=== PATIENT | female | born 1980 | race Caucasian/White ===

== ENCOUNTER 2016-12-11 18:46 | Emergency (ER) | payer MEDICAID ==
[~2016-12-11] VITALS: Ht 261.6 cm; Wt 146.8 kg
[2016-12-11 18:50] VITALS: Ht 261.6 cm; Wt 146.8 kg
--- OUTSIDE RECORDS SUMMARY | 2016-12-11 18:51 | XMS REPORT | Referral Summary ---
Author Author [facility] Organization [facility] Address Unknown Phone Unavailable Care Team Providers Care Customer Solutions Supervisor Name Role Phone Annita - [facility] Primary Care Physician Unavailable Encounter [facility] [id number] Date(s): 04/01/15 - 04/01/15 [facility] [address] [place] [address] Final: HEADACHE Discharge Disposition: Without Being Seen Attending Physician: Rishi Davila MD Admitting Physician: Rishi Davila MD Vital Signs Most recent to 1 oldest [Reference Range]: Temperature Oral 36.9 degC [35.8-37.3 degC] (04/01/15 1:20 AM) Peripheral Pulse 90 bpm Rate [60-100 bpm] (04/01/15 1:20 AM) Respiratory Rate 20 br/min [14-20 br/min] (04/01/15 1:20 AM) Blood Pressure 113/90 mmHg [90-140/60-90 mmHg] (04/01/15 1:20 AM) SpO2 97 % (04/01/15 1:20 AM) Problem List Condition Effective Dates Status Health Status Informant ADHD(Confirmed) Active patient Asthma(Confirmed) Active patient Bipolar(Confirmed) Active patient Borderline Active patient personality disorder(Confirmed) Vaginal Active matt(Confirmed) Chronic Active patient depression(Confirmed ) Neuropathy, Active peripheral(Confirmed ) GERD(Confirmed) Active patient Intermittent Active patient explosive disorder(Confirmed) Lymphedema of lower Active extremity(Confirmed) Morbid Active obesity(Confirmed) OCD(Confirmed) Active patient Tobacco Active abuse(Confirmed) Allergies, Adverse Reactions, Alerts Substance Reaction Severity Status Phenergan1 Medium Active 1gets muscle spasm and cold Medications ibuprofen 800 mg oral tablet 800 mg 1 tabs, Oral, TID, as needed for pain, # 30 tabs, 0 Refill(s) Start Date: 12/9/15 Status: Ordered Zoloft 50 mg oral tablet 50 mg 1 tabs, Oral, Daily, 0 Refill(s) Start Date: 02/23/15 Status: Ordered Results No data available for this section Immunizations Vaccine Date Refusal Reason tetanus-diphth toxoids (Td) adult/adol 08/23/03 Procedures Procedure Date Related Diagnosis Body Site Cholecystectomy Laparoscopic1 06/25/15 Eye operation2 Fallopian tube excision3 Ovary operation4 1auto-populated from documented surgical case 2"lazy" eye correction bilat eyes 3Left 4" control devise removed from right ovary" and cyst removal Social History Social History Type Response Smoking Status Current every day smoker; Type: Cigarettes; Number of years: 24; Total pack years: 360; Started at age: 9 Assessment and Plan No data available for this section
--- OUTSIDE RECORDS SUMMARY | 2016-12-11 18:51 | XMS REPORT | Referral Summary ---
Author Author [facility] Organization [facility] Address Unknown Phone Unavailable Care Team Providers Care Doctor Of Nursing Practice Name Role Phone [facility] Unavailable Encounter [facility] [id number] Date(s): 04/04/15 - 04/04/15 [facility] [address] [place] [address] Discharge Diagnosis: Vomiting in adult Discharge Diagnosis: Abdominal pain Final: ABDOMINAL PAIN, OTHER SPECIFIED SITE; MULTIPLE SITES Final: VOMITING ALONE Discharge Disposition: 01-Home or Self Care Attending Physician: Louie York MD Admitting Physician: Louie York MD Vital Signs Most recent to 1 oldest [Reference Range]: Temperature Oral 36.5 degC [35.8-37.3 degC] (04/04/15 2:42 PM) Peripheral Pulse 95 bpm Rate [60-100 bpm] (04/04/15 6:24 PM) Respiratory Rate 16 br/min [14-20 br/min] (04/04/15 6:24 PM) Blood Pressure 129/86 mmHg [90-140/60-90 mmHg] (04/04/15 6:24 PM) SpO2 97 % (04/04/15 6:24 PM) Problem List Condition Effective Dates Status Health [...] Active 1gets muscle spasm and cold Medications Bactrim DS 800 mg-160 mg oral tablet 1 tabs, Oral, BID, X 7 days, # 14 tabs, 0 Refill(s) Start Date: 10/12/15 Stop Date: 10/19/15 Status: Ordered Fleet Enema 7 g-19 g rectal enema 1 Each, Rectal, Once, as needed for constipation, # 133 mL, 0 Refill(s) Start Date: 10/12/15 Status: Ordered GoLYTELY oral powder for reconstitution 240 mL, Oral, q10min, # 1 Each, 0 Refill(s) Start Date: 10/12/15 Status: Ordered ibuprofen 800 mg oral tablet 800 mg 1 tabs, Oral, TID, as needed for pain, # 30 tabs, 0 Refill(s) Start Date: 09/05/15 Status: Ordered Zoloft 50 mg oral tablet 50 mg 1 tabs, Oral, Daily, 0 Refill(s) Start Date: 02/23/15 Status: Ordered Results Hematology Most recent to 1 oldest [Reference Range]: WBC [4.8-10.8 10.6 10*3/uL 10*3/uL] (04/04/15 4:43 PM) RBC [4.00-5.20 4.73 10*6/uL 10*6/uL] (04/04/15 4:43 PM) Hgb [12.0-16.0 13.0 gm/dL gm/dL] (04/04/15 4:43 PM) Hct [37.0-47.0 %] 39.8 % (04/04/15 4:43 PM) MCV [82.0-99.0 fL] 84.1 fL (04/04/15 4:43 PM) MCH [27.0-32.0 pg] 27.5 pg (04/04/15 4:43 PM) MCHC [32.0-36.0 32.7 gm/dL gm/dL] (04/04/15 4:43 PM) RDW [11.5-14.5 %] 15.2 % *HI* (04/04/15 4:43 PM) Platelet [150-400 315 10*3/uL 10*3/uL] (04/04/15 4:43 PM) MPV [9.4-12.4 fL] 10.8 fL (04/04/15 4:43 PM) Immature 0.2 % Granulocytes (04/04/15 4:43 PM) [0.0-1.0 %] Neutrophils [51-75 74 % %] (04/04/15 4:43 PM) Lymphocytes [20-46 19 % %] *LOW* (04/04/15 4:43 PM) Monocytes [4-11 %] 5 % (04/04/15 4:43 PM) Eosinophils [0-4 %] 2 % (04/04/15 4:43 PM) Basophils [0-2 %] 0 % (04/04/15 4:43 PM) Neutro Absolute 7.82 10*3 [1.90-7.00 10*3] *HI* (04/04/15 4:43 PM) Lymph Absolute 2.01 10*3 [0.80-3.30 10*3] (04/04/15 4:43 PM) [place] Absolute 0.49 10*3 [0.30-1.00 10*3] (04/04/15 4:43 PM) Eos Absolute 0.21 10*3 [0.00-0.50 10*3] (04/04/15 4:43 PM) Baso Absolute 0.02 10*3 [0.00-0.20 10*3] (04/04/15 4:43 PM) Nucleated RBC 0.0 /100 WBC Automated [0 /100 (04/04/15 4:43 PM) WBC] Chemistry Most recent to 1 oldest [Reference Range]: Sodium Lvl [136-144 137 mEq/L mEq/L] (04/04/15 4:43 PM) Potassium Lvl 4.2 mEq/L [3.6-5.1 mEq/L] (04/04/15 4:43 PM) Chloride [99-109 105 mEq/L mEq/L] (04/04/15 4:43 PM) CO2 [22-32 mEq/L] 26 mEq/L (04/04/15 4:43 PM) AGAP [3-20] 6 (04/04/15 4:43 PM) BUN [4-20 mg/dL] 9 mg/dL (04/04/15 4:43 PM) Glucose Lvl [70-100 105 mg/dL mg/dL] *HI* (04/04/15 4:43 PM) Creatinine Lvl 1.15 mg/dL [0.44-1.03 mg/dL] *HI* (04/04/15 4:43 PM) eGFR [>60] 54 1 *ABN* (04/04/15 4:43 PM) Calcium Lvl 9.0 mg/dL [8.6-10.0 mg/dL] (04/04/15 4:43 PM) Albumin Lvl [3.5-4.8 3.3 gm/dL gm/dL] *LOW* (04/04/15 4:43 PM) Total Protein 6.8 gm/dL [6.1-7.9 gm/dL] (04/04/15 4:43 PM) Globulin [1.9-4.3 3.5 gm/dL gm/dL] (04/04/15 4:43 PM) ALT [14-54 U/L] 19 U/L (04/04/15 4:43 PM) AST [15-41 U/L] 19 U/L (04/04/15 4:43 PM) Alk Phos [26-104 74 U/L U/L] (04/04/15 4:43 PM) Bili Total [0.2-1.2 0.5 mg/dL 2 mg/dL] (04/04/15 4:43 PM) Lipase Lvl [8-48 25 U/L U/L] (04/04/15 4:43 PM) 1Result Comment: Multiply eGFR results by 1.21 for race. 2Result Comment: Naproxen, specifically the metabolite O-desmethylnaproxen, may cause spurious elevation in Total Bilirubin levels. Urinalysis Most recent to 1 oldest [Reference Range]: UA Color Dk Yellow (04/04/15 4:44 PM) UA Appear Clear (04/04/15 4:44 PM) UA pH [5.0-8.0] 6.5 (04/04/15 4:44 PM) UA Leuk Est Negative [Negative] (04/04/15 4:44 PM) UA Nitrite Negative [Negative] (04/04/15 4:44 PM) UA Protein Negative [Negative] (04/04/15 4:44 PM) UA Glucose Negative [Negative] (04/04/15 4:44 PM) UA Ketones Negative [Negative] (04/04/15 4:44 PM) UA Urobilinogen 4.0 mg/dL [<1.0 mg/dL] *ABN* (04/04/15 4:44 PM) UA Bili [Negative] Negative (04/04/15 4:44 PM) UA Blood [Negative] Negative (04/04/15 4:44 PM) UA Spec Grav 1.018 [1.003-1.030] (04/04/15 4:44 PM) Type Clean Catch (04/04/15 4:44 PM) Immunizations Vaccine Date Refusal Reason tetanus-diphth toxoids [...]
--- OUTSIDE RECORDS SUMMARY | 2016-12-11 18:52 | XMS REPORT | Referral Summary ---
Author Author [facility] Organization [facility] Address Unknown Phone Unavailable Care Team Providers Care Fur Plucker Name Role Phone [facility] Unavailable Encounter [facility] [id number] Date(s): 03/10/15 - 03/10/15 [facility] [address] [place] [address] Discharge Diagnosis: Left ankle sprain Final: UNSPECIFIED SITE OF ANKLE SPRAIN Final: TOBACCO USE DISORDER Final: Overexertion from sudden strenuous movement Discharge Disposition: 01-Home or Self Care Attending Physician: Gilberto Xiong MD Admitting Physician: Gilberto Xiong MD Vital Signs Most recent to 1 oldest [Reference Range]: Temperature Oral 36.7 degC [35.8-37.3 degC] (03/10/15 6:44 PM) Peripheral Pulse 95 bpm Rate [60-100 bpm] (03/10/15 9:09 PM) Respiratory Rate 16 br/min [14-20 br/min] (03/10/15 9:09 PM) Blood Pressure 141/85 mmHg [90-140/60-90 mmHg] *HI* (03/10/15 9:09 PM) SpO2 98 % (03/10/15 9:09 PM) Problem List Condition Effective Dates Status [...]
--- OUTSIDE RECORDS SUMMARY | 2016-12-11 18:52 | XMS REPORT | Referral Summary ---
Author Author [facility] Organization [facility] Address Unknown Phone Unavailable Care Team Providers Care Optician Apprentice Dispensing Name Role Phone Annita [facility] Primary Care Physician Unavailable Encounter [facility] [id number] Date(s): 06/27/15 - 06/27/15 [facility] [address] [place] [address] Discharge Diagnosis: Vaginal bleeding Discharge Disposition: 01-Home or Self Care Attending Physician: Mahin Harman MD Admitting Physician: Mahin Harman MD Vital Signs Most recent to 1 oldest [Reference Range]: Temperature Oral 36.6 degC [35.8-37.3 degC] (06/27/15 1:33 PM) Peripheral Pulse 78 bpm Rate [60-100 bpm] (06/27/15 3:32 PM) Respiratory Rate 18 br/min [14-20 br/min] (06/27/15 3:32 PM) Blood Pressure 118/82 mmHg [90-140/60-90 mmHg] (06/27/15 3:32 PM) SpO2 98 % (06/27/15 3:32 PM) Problem List Condition Effective Dates Status [...] Active 1gets muscle spasm and cold Medications Benadryl 0 Refill(s) Start Date: 03/10/15 Status: Ordered ibuprofen 800 mg oral tablet 1 tabs, Oral, TID, Pain, # 15 tabs, 0 Refill(s) Start Date: 08/19/14 Status: Ordered Percocet 5/325 oral tablet 1-2 tabs, Oral, q4hr, Pain Moderate (4-6), 0 Refill(s) Start Date: 06/25/15 Status: Ordered Zoloft 50 mg oral tablet 50 mg 1 tabs, Oral, Daily, 0 Refill(s) Start Date: 02/23/15 Status: Ordered Results Hematology Most recent to 1 oldest [Reference Range]: WBC [4.8-10.8 9.2 10*3/uL 10*3/uL] (06/27/15 1:44 PM) RBC [4.00-5.20] 4.58 (06/27/15 1:44 PM) Hgb [12.0-16.0 12.6 gm/dL gm/dL] (06/27/15 1:44 PM) Hct [37.0-47.0 %] 38.8 % (06/27/15 1:44 PM) MCV [82.0-99.0 fL] 84.7 fL (06/27/15 1:44 PM) MCH [27.0-32.0 pg] 27.5 pg (06/27/15 1:44 PM) MCHC [32.0-36.0 32.5 gm/dL gm/dL] (06/27/15 1:44 PM) RDW [11.5-14.5 %] 14.9 % *HI* (06/27/15 1:44 PM) Platelet [150-400 313 10*3/uL 10*3/uL] (06/27/15 1:44 PM) MPV [9.4-12.4 fL] 10.5 fL (06/27/15 1:44 PM) Immature 0.2 % Granulocytes (06/27/15 1:44 PM) [0.0-1.0 %] Neutrophils [51-75 73 % %] (06/27/15 1:44 PM) Lymphocytes [20-46 20 % %] (06/27/15 1:44 PM) Monocytes [4-11 %] 5 % (06/27/15 1:44 PM) Eosinophils [0-4 %] 3 % (06/27/15 1:44 PM) Basophils [0-2 %] 0 % (06/27/15 1:44 PM) Neutro Absolute 6.71 10*3 [1.90-7.00 10*3] (06/27/15 1:44 PM) Lymph Absolute 1.81 10*3 [0.80-3.30 10*3] (06/27/15 1:44 PM) [place] Absolute 0.44 10*3 [0.30-1.00 10*3] (06/27/15 1:44 PM) Eos Absolute 0.23 10*3 [0.00-0.50 10*3] (06/27/15 1:44 PM) Baso Absolute 0.02 10*3 [0.00-0.20 10*3] (06/27/15 1:44 PM) Nucleated RBC 0.0 /100 WBC Automated [0 /100 (06/27/15 1:44 PM) WBC] Chemistry Most recent to 1 oldest [Reference Range]: Sodium Lvl [136-144 140 mEq/L mEq/L] (06/27/15 1:44 PM) Potassium Lvl 3.8 mEq/L [3.6-5.1 mEq/L] (06/27/15 1:44 PM) Chloride [99-109 107 mEq/L mEq/L] (06/27/15 1:44 PM) CO2 [22-32 mEq/L] 26 mEq/L (06/27/15 1:44 PM) AGAP [3-20] 7 (06/27/15 1:44 PM) BUN [4-20 mg/dL] 9 mg/dL (06/27/15 1:44 PM) Glucose Lvl [70-100 119 mg/dL mg/dL] *HI* (06/27/15 1:44 PM) Creatinine Lvl 0.59 mg/dL [0.44-1.03 mg/dL] (06/27/15 1:44 PM) eGFR [>60] >60 1 (06/27/15 1:44 PM) Calcium Lvl 8.5 mg/dL [8.6-10.0 mg/dL] *LOW* (06/27/15 1:44 PM) Albumin Lvl [3.5-4.8 3.2 gm/dL gm/dL] *LOW* (06/27/15 1:44 PM) Total Protein 6.6 gm/dL [6.1-7.9 gm/dL] (06/27/15 1:44 PM) Globulin [1.9-4.3 3.4 gm/dL gm/dL] (06/27/15 1:44 PM) ALT [14-54 U/L] 22 U/L (06/27/15 1:44 PM) AST [15-41 U/L] 24 U/L (06/27/15 1:44 PM) Alk Phos [26-104 72 U/L U/L] (06/27/15 1:44 PM) Bili Total [0.2-1.2 0.4 mg/dL 2 mg/dL] (06/27/15 1:44 PM) Screen, Negative Urine NPT (06/27/15 1:53 PM) 1Result Comment: Multiply eGFR results by 1.21 for race. 2Result Comment: Naproxen, specifically the metabolite O-desmethylnaproxen, may cause spurious elevation in Total Bilirubin levels. Microbiology Reports TEST: Affirm Vaginitis Panel STATUS: Auth (Verified) BODY SITE: SOURCE: Cervix/Vaginal COLLECTED DATE/TIME: 06/27/15 2:00 PM Affirm Vaginitis Panel Negative for Trichomonas vaginalis Negative for Gardnerella vaginalis Negative for Matt species Immunizations Vaccine Date Refusal Reason tetanus-diphth toxoids [...]
--- OUTSIDE RECORDS SUMMARY | 2016-12-11 18:52 | XMS REPORT | Referral Summary ---
Author Author [facility] Organization [facility] Address Unknown Phone Unavailable Care Team Providers Care Para Educator Name Role Phone Annita [facility] Primary Care Physician Unavailable Encounter [facility] [id number] Date(s): 02/04/16 - 02/04/16 [facility] [address] [place] [address] Discharge Diagnosis: Ear normal. Discharge Disposition: 01-Home or Self Care Attending Physician: Lee Ann Espino DO Admitting Physician: Lee Ann Espino DO Vital Signs Most recent to 1 oldest [Reference Range]: Temperature Oral 36.4 degC [35.8-37.3 degC] (02/04/16 6:33 AM) Peripheral Pulse 82 bpm Rate [60-100 bpm] (02/04/16 7:38 AM) Respiratory Rate 18 br/min [14-20 br/min] (02/04/16 7:38 AM) Blood Pressure 133/94 mmHg [90-140/60-90 mmHg] (02/04/16 7:38 AM) SpO2 97 % (02/04/16 6:33 AM) Problem List Condition Effective Dates Status [...] Active 1gets muscle spasm and cold Medications Azithromycin 5 Day Dose Pack 250 mg oral tablet 1 packets, Oral, Once, as directed on package labeling, # 6 tabs, 0 Refill(s) Start Date: 4/12/16 Status: Ordered ibuprofen 800 mg oral tablet 800 mg 1 tabs, Oral, TID, as needed for pain, # 30 tabs, 0 Refill(s) Start Date: 09/05/15 Status: Ordered promethazine/phenylephrine/codeine 6.25 mg-5 mg-10 mg/5 mL oral syrup 5 mL, Oral, Bedtime (once a day), as needed for cough, # 120 mL, 0 Refill(s) Start Date: 01/08/16 Stop Date: 01/07/17 Status: Ordered Results No data available for [...]
--- OUTSIDE RECORDS SUMMARY | 2016-12-11 18:52 | XMS REPORT | Referral Summary ---
Author Author [facility] Organization [facility] Address Unknown Phone Unavailable Care Team Providers Care Blending Supervisor Name Role Phone [facility] Unavailable Encounter [facility] [id number] Date(s): 07/25/15 - 07/25/15 [facility] [address] [place] [address] [phone] Discharge Diagnosis: Migraine Discharge Disposition: 01-Home or Self Care Attending Physician: Rishi Davila MD Admitting Physician: Rishi Davila MD Vital Signs Most recent to 1 oldest [Reference Range]: Temperature Oral 36.3 degC [35.8-37.3 degC] (07/25/15 1:08 AM) Peripheral Pulse 76 bpm Rate [60-100 bpm] (07/25/15 3:09 AM) Heart Rate Monitored 77 bpm [60-100 bpm] (07/25/15 3:08 AM) Respiratory Rate 20 br/min [14-20 br/min] (07/25/15 3:09 AM) Blood Pressure 125/57 mmHg [90-140/60-90 mmHg] (07/25/15 3:09 AM) Mean Arterial 81 mmHg Pressure, Cuff (07/25/15 3:08 AM) SpO2 99 % (07/25/15 3:09 AM) Problem List Condition Effective Dates Status [...] Active 1gets muscle spasm and cold Medications Zoloft 50 mg oral tablet 50 mg 1 tabs, Oral, Daily, 0 Refill(s) Start Date: 02/23/15 Status: Ordered Results Chemistry Most recent to 1 oldest [Reference Range]: Screen, Negative Urine NPT (07/25/15 2:49 AM) Immunizations Vaccine Date Refusal Reason tetanus-diphth toxoids [...]
--- OUTSIDE RECORDS SUMMARY | 2016-12-11 18:52 | XMS REPORT | Referral Summary ---
Author Author [facility] Organization [facility] Address Unknown Phone Unavailable Care Team Providers Care Roving Or Yarn Color Checker Name Role Phone [facility] Unavailable Encounter [facility] [id number] Date(s): 03/27/15 - 03/27/15 [facility] [address] [place] [address] [phone] Final: URINARY TRACT INFECTION, SITE NOT SPECIFIED Final: NAUSEA ALONE Final: NAUSEA WITH VOMITING Final: TOBACCO USE DISORDER Discharge Diagnosis: Vomiting Discharge Diagnosis: Near syncope Discharge Diagnosis: UTI (urinary tract infection) Discharge Disposition: 01-Home or Self Care Attending Physician: Bennett Patterson MD Admitting Physician: Bennett Patterson MD Vital Signs Most recent to 1 oldest [Reference Range]: Temperature Oral 36.7 degC [35.8-37.3 degC] (03/27/15 7:20 PM) Peripheral Pulse 77 bpm Rate [60-100 bpm] (03/27/15 10:30 PM) Heart Rate Monitored 76 bpm [60-100 bpm] (03/27/15 11:45 PM) Respiratory Rate 16 br/min [14-20 br/min] (03/27/15 11:45 PM) Blood Pressure 106/63 mmHg [90-140/60-90 mmHg] (03/27/15 11:45 PM) Mean Arterial 77 mmHg Pressure, Cuff (03/27/15 11:00 PM) SpO2 99 % (03/27/15 11:45 PM) Problem List Condition Effective Dates Status [...] to 1 oldest [Reference Range]: WBC [4.8-10.8 9.8 10*3/uL 10*3/uL] (03/27/15 9:58 PM) RBC [4.00-5.20 4.48 10*6/uL 10*6/uL] (03/27/15 9:58 PM) Hgb [12.0-16.0 12.6 gm/dL gm/dL] (03/27/15 9:58 PM) Hct [37.0-47.0 %] 38.0 % (03/27/15 9:58 PM) MCV [82.0-99.0 fL] 84.8 fL (03/27/15 9:58 PM) MCH [27.0-32.0 pg] 28.1 pg (03/27/15 9:58 PM) MCHC [32.0-36.0 33.2 gm/dL gm/dL] (03/27/15 9:58 PM) RDW [11.5-14.5 %] 15.3 % *HI* (03/27/15 9:58 PM) Platelet [150-400 295 10*3/uL 10*3/uL] (03/27/15 9:58 PM) MPV [9.4-12.4 fL] 10.7 fL (03/27/15 9:58 PM) Chemistry Most recent to 1 oldest [Reference Range]: Sodium Lvl [136-144 138 mEq/L mEq/L] (03/27/15 9:58 PM) Potassium Lvl 3.8 mEq/L [3.6-5.1 mEq/L] (03/27/15 9:58 PM) Chloride [99-109 105 mEq/L mEq/L] (03/27/15 9:58 PM) CO2 [22-32 mEq/L] 26 mEq/L (03/27/15 9:58 PM) AGAP [3-20] 7 (03/27/15 9:58 PM) BUN [4-20 mg/dL] 7 mg/dL (03/27/15 9:58 PM) Glucose Lvl [70-100 100 mg/dL mg/dL] (03/27/15 9:58 PM) Creatinine Lvl 0.70 mg/dL [0.44-1.03 mg/dL] (03/27/15 9:58 PM) eGFR [>60] >60 1 (03/27/15 9:58 PM) Calcium Lvl 8.9 mg/dL [8.6-10.0 mg/dL] (03/27/15 9:58 PM) Albumin Lvl [3.5-4.8 3.4 gm/dL gm/dL] *LOW* (03/27/15 9:58 PM) Total Protein 6.7 gm/dL [6.1-7.9 gm/dL] (03/27/15 9:58 PM) Globulin [1.9-4.3 3.3 gm/dL gm/dL] (03/27/15 9:58 PM) ALT [14-54 U/L] 20 U/L (03/27/15 9:58 PM) AST [15-41 U/L] 20 U/L (03/27/15 9:58 PM) Alk Phos [26-104 80 U/L U/L] (03/27/15 9:58 PM) Bili Total [0.2-1.2 0.3 mg/dL 2 mg/dL] (03/27/15 9:58 PM) Screen, Negative Urine NPT (03/27/15 10:03 PM) 1Result Comment: Multiply eGFR results by 1.21 for race. 2Result Comment: Naproxen, specifically the metabolite O-desmethylnaproxen, may cause spurious elevation in Total Bilirubin levels. Urinalysis Most recent to 1 oldest [Reference Range]: UA Color Yellow (03/27/15 9:57 PM) UA Appear Clear (03/27/15 9:57 PM) UA pH [5.0-8.0] 5.0 (03/27/15 9:57 PM) UA Leuk Est Trace [Negative] *ABN* (03/27/15 9:57 PM) UA Nitrite Negative [Negative] (03/27/15 9:57 PM) UA Protein Negative [Negative] (03/27/15 9:57 PM) UA Glucose Negative [Negative] (03/27/15 9:57 PM) UA Ketones Negative [Negative] (03/27/15 9:57 PM) UA Urobilinogen Negative [<1.0] (03/27/15 9:57 PM) UA Bili [Negative] Negative (03/27/15 9:57 PM) UA Blood [Negative] Pos 2+ *ABN* (03/27/15 9:57 PM) UA Spec Grav 1.017 [1.003-1.030] (03/27/15 9:57 PM) Type Clean Catch (03/27/15 9:57 PM) UA WBC [0-4] 10-20 *ABN* (03/27/15 9:57 PM) UA RBC [0-2] 0-2 (03/27/15 9:57 PM) Epithelial Cells 20-50 (03/27/15 9:57 PM) UA Bacteria Numerous *ABN* (03/27/15 9:57 PM) UA Mucous Present (03/27/15 9:57 PM) Microbiology Reports TEST: Urine Culture STATUS: Auth (Verified) BODY SITE: SOURCE: Urine COLLECTED DATE/TIME: 03/27/15 9:57 PM Urine Culture Mixed kenroy indicative of vaginal and/or skin contamination Immunizations Vaccine Date Refusal Reason tetanus-diphth toxoids [...]
--- OUTSIDE RECORDS SUMMARY | 2016-12-11 18:52 | XMS REPORT | Referral Summary ---
Author Author [facility] Organization [facility] Address Unknown Phone Unavailable Care Team Providers Care Changeover Operator Name Role Phone [facility] Unavailable Encounter [facility] [id number] Date(s): 02/23/15 - 02/23/15 [facility] [address] [place] [address] Discharge Diagnosis: External bleeding hemorrhoids Discharge Diagnosis: Rectal pain Final: CELLULITIS AND ABSCESS OF BUTTOCK Final: EXTERNAL HEMORRHOIDS WITH OTHER COMPLICATION Discharge Diagnosis: Abscess of skin Discharge Disposition: 01-Home or Self Care Attending Physician: Gilberto Xiong MD Admitting Physician: Gilberto Xiong MD Vital Signs Most recent to 1 oldest [Reference Range]: Temperature Oral 36.7 degC [35.8-37.3 degC] (02/23/15 3:33 PM) Peripheral Pulse 92 bpm Rate [60-100 bpm] (02/23/15 3:33 PM) Respiratory Rate 16 br/min [14-20 br/min] (02/23/15 3:33 PM) Blood Pressure 125/79 mmHg [90-140/60-90 mmHg] (02/23/15 3:33 PM) SpO2 98 % (02/23/15 3:33 PM) Problem List Condition Effective Dates Status [...] Active 1gets muscle spasm and cold Medications amoxicillin 500 mg oral tablet 500 mg 1 tabs, Oral, TID, X 10 days, # 30 tabs, 0 Refill(s) Start Date: 09/05/15 Stop Date: 09/15/15 Status: Ordered ibuprofen 800 mg oral tablet 800 mg 1 tabs, Oral, TID, as needed for pain, # 30 tabs, 0 Refill(s) Start Date: 09/05/15 Status: Ordered Randolph 5 mg-325 mg oral tablet 1 tabs, Oral, q6hr, as needed for pain, X 3 days, # 12 tabs, 0 Refill(s) Start Date: 09/05/15 Stop Date: 09/08/15 Status: Ordered Zoloft 50 mg oral tablet 50 mg 1 tabs, Oral, Daily, 0 Refill(s) Start Date: 02/23/15 Status: Ordered Results Chemistry Most recent to 1 oldest [Reference Range]: Occult Blood, Stool Positive NPT [Negative] *ABN* (02/23/15 3:18 PM) Immunizations Vaccine Date Refusal Reason tetanus-diphth [...]
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
--- OUTSIDE RECORDS SUMMARY | 2016-12-11 18:52 | XMS REPORT | Referral Summary ---
Author Author [facility] Organization [facility] Address Unknown Phone Unavailable Care Team Providers Care Interlocker Name Role Phone [facility] Unavailable Encounter [facility] [id number] Date(s): 04/25/15 - 04/25/15 [facility] [address] [place] [address] Final: DIZZINESS AND GIDDINESS Final: URINARY TRACT INFECTION, SITE NOT SPECIFIED Discharge Diagnosis: Urinary tract infection Discharge Diagnosis: Dizziness Discharge Disposition: 01-Home or Self Care Attending Physician: Marcos Wu MD Admitting Physician: Marcos Wu MD Referring Physician: Self Referred, X Vital Signs Most recent to 1 oldest [Reference Range]: Temperature Oral 36.7 degC [35.8-37.3 degC] (04/25/15 12:56 AM) Peripheral Pulse 90 bpm Rate [60-100 bpm] (04/25/15 12:56 AM) Heart Rate Monitored 78 bpm [60-100 bpm] (04/25/15 7:01 AM) Respiratory Rate 16 br/min [14-20 br/min] (04/25/15 12:56 AM) Blood Pressure 115/81 mmHg [90-140/60-90 mmHg] (04/25/15 7:01 AM) Mean Arterial 90 mmHg Pressure, Cuff (04/25/15 7:01 AM) SpO2 93 % (04/25/15 5:20 AM) Problem List Condition Effective Dates Status [...] Active 1gets muscle spasm and cold Medications Fleet Enema 7 g-19 g rectal enema [...] to 1 oldest [Reference Range]: WBC [4.8-10.8 10.9 10*3/uL 10*3/uL] *HI* (04/25/15 4:51 AM) RBC [4.00-5.20 4.44 10*6/uL 10*6/uL] (04/25/15 4:51 AM) Hgb [12.0-16.0 12.2 gm/dL gm/dL] (04/25/15 4:51 AM) Hct [37.0-47.0 %] 37.7 % (04/25/15 4:51 AM) MCV [82.0-99.0 fL] 84.9 fL (04/25/15 4:51 AM) MCH [27.0-32.0 pg] 27.5 pg (04/25/15 4:51 AM) MCHC [32.0-36.0 32.4 gm/dL gm/dL] (04/25/15 4:51 AM) RDW [11.5-14.5 %] 15.1 % *HI* (04/25/15 4:51 AM) Platelet [150-400 307 10*3/uL 10*3/uL] (04/25/15 4:51 AM) MPV [9.4-12.4 fL] 11.0 fL (04/25/15 4:51 AM) Immature 0.4 % Granulocytes (04/25/15 4:51 AM) [0.0-1.0 %] Neutrophils [51-75 63 % %] (04/25/15 4:51 AM) Lymphocytes [20-46 28 % %] (04/25/15 4:51 AM) Monocytes [4-11 %] 5 % (04/25/15 4:51 AM) Eosinophils [0-4 %] 3 % (04/25/15 4:51 AM) Basophils [0-2 %] 0 % (04/25/15 4:51 AM) Neutro Absolute 6.85 10*3 [1.90-7.00 10*3] (04/25/15 4:51 AM) Lymph Absolute 3.10 10*3 [0.80-3.30 10*3] (04/25/15 4:51 AM) [place] Absolute 0.59 10*3 [0.30-1.00 10*3] (04/25/15 4:51 AM) Eos Absolute 0.30 10*3 [0.00-0.50 10*3] (04/25/15 4:51 AM) Baso Absolute 0.02 10*3 [0.00-0.20 10*3] (04/25/15 4:51 AM) Nucleated RBC 0.0 /100 WBC Automated [0 /100 (04/25/15 4:51 AM) WBC] Chemistry Most recent to 1 oldest [Reference Range]: Sodium Lvl [136-144 140 mEq/L mEq/L] (04/25/15 4:51 AM) Potassium Lvl 3.6 mEq/L [3.6-5.1 mEq/L] (04/25/15 4:51 AM) Chloride [99-109 106 mEq/L mEq/L] (04/25/15 4:51 AM) CO2 [22-32 mEq/L] 27 mEq/L (04/25/15 4:51 AM) AGAP [3-20] 7 (04/25/15 4:51 AM) BUN [4-20 mg/dL] 6 mg/dL (04/25/15 4:51 AM) Glucose Lvl [70-100 105 mg/dL mg/dL] *HI* (04/25/15 4:51 AM) Creatinine Lvl 0.56 mg/dL [0.44-1.03 mg/dL] (04/25/15 4:51 AM) eGFR [>60] >60 1 (04/25/15 4:51 AM) Calcium Lvl 8.7 mg/dL [8.6-10.0 mg/dL] (04/25/15 4:51 AM) Albumin Lvl [3.5-4.8 3.5 gm/dL gm/dL] (04/25/15 4:51 AM) Total Protein 6.8 gm/dL [6.1-7.9 gm/dL] (04/25/15 4:51 AM) Globulin [1.9-4.3 3.3 gm/dL gm/dL] (04/25/15 4:51 AM) ALT [14-54 U/L] 18 U/L (04/25/15 4:51 AM) AST [15-41 U/L] 16 U/L (04/25/15 4:51 AM) Alk Phos [26-104 76 U/L U/L] (04/25/15 4:51 AM) Bili Total [0.2-1.2 0.4 mg/dL 2 mg/dL] (04/25/15 4:51 AM) U Beta hCG Ql Neg (04/25/15 5:53 AM) 1Result Comment: Multiply eGFR results by 1.21 for race. 2Result Comment: Naproxen, specifically the metabolite O-desmethylnaproxen, may cause spurious elevation in Total Bilirubin levels. Urinalysis Most recent to 1 oldest [Reference Range]: UA Color Dk Yellow (04/25/15 5:50 AM) UA Appear Sl Cloudy (04/25/15 5:50 AM) UA pH [5.0-8.0] 5.0 (04/25/15 5:50 AM) UA Leuk Est Pos 1+ [Negative] *ABN* (04/25/15 5:50 AM) UA Nitrite Negative [Negative] (04/25/15 5:50 AM) UA Protein Negative [Negative] (04/25/15 5:50 AM) UA Glucose Negative [Negative] (04/25/15 5:50 AM) UA Ketones Trace [Negative] *ABN* (04/25/15 5:50 AM) UA Urobilinogen 1.0 mg/dL [<1.0 mg/dL] (04/25/15 5:50 AM) UA Bili [Negative] Negative (04/25/15 5:50 AM) UA Blood [Negative] Pos 1+ *ABN* (04/25/15 5:50 AM) UA Spec Grav 1.028 [1.003-1.030] (04/25/15 5:50 AM) Type Clean Catch (04/25/15 5:50 AM) UA WBC [0-4] 10-20 *ABN* (04/25/15 5:50 AM) UA RBC [0-2] 0-2 (04/25/15 5:50 AM) Epithelial Cells 10-20 (04/25/15 5:50 AM) UA Bacteria Moderate *ABN* (04/25/15 5:50 AM) Crystals Ca Ox (04/25/15 5:50 AM) UA Mucous Present (04/25/15 5:50 AM) Microbiology Reports TEST: Urine Culture STATUS: Auth (Verified) BODY SITE: SOURCE: Urine COLLECTED DATE/TIME: 04/25/15 5:50 AM Urine Culture Mixed kenroy indicative of vaginal [...]
--- OUTSIDE RECORDS SUMMARY | 2016-12-11 18:52 | XMS REPORT | Referral Summary ---
Author Author [facility] Organization [facility] Address Unknown Phone Unavailable Care Team Providers Care Telephone Order Clerk Room Service Name Role Phone Annita [facility] Primary Care Physician Unavailable Encounter [facility] [id number] Date(s): 07/25/15 - 07/25/15 [facility] [address] [place] [address] Final: Migraine, unspecified, not intractable, without status migrainosus Discharge Diagnosis: Migraine Discharge Disposition: 01-Home or [...] # 6 tabs, 0 Refill(s) Start Date: 01/08/16 Status: Ordered ibuprofen 800 mg oral tablet 800 mg 1 tabs, Oral, TID, as needed for pain, # 30 tabs, 0 Refill(s) Start Date: 09/05/15 Status: Ordered promethazine/phenylephrine/codeine 6.25 mg-5 mg-10 mg/5 mL oral syrup 5 mL, Oral, Bedtime (once a day), as needed for cough, # 120 mL, 0 Refill(s) Start Date: 01/08/16 Stop Date: 01/07/17 Status: Ordered Results Chemistry Most recent to [...]
--- OUTSIDE RECORDS SUMMARY | 2016-12-11 18:52 | XMS REPORT | Referral Summary ---
Author Author [facility] Organization [facility] Address Unknown Phone Unavailable Care Team Providers Care Pediatric Psychiatrist Name Role Phone Annita [facility] Primary Care Physician Unavailable Encounter [facility] [id number] Date(s): 06/25/15 - 06/25/15 [facility] [address] [place] [address] [phone] Discharge Diagnosis: S/p laparoscopic cholecystectomy Discharge Diagnosis: Chronic cholecystitis Discharge Disposition: 01-Home or Self Care Attending Physician: Cristi Lewis MD Admitting Physician: Cristi Lewis MD Vital Signs Most recent to 1 oldest [Reference Range]: Temperature Skin 36.2 degC [36-37 degC] (06/25/15 6:25 PM) Peripheral Pulse 82 bpm Rate [60-100 bpm] (06/25/15 8:10 PM) Heart Rate Monitored 67 bpm [60-100 bpm] (06/25/15 6:16 PM) Respiratory Rate 21 br/min [14-20 br/min] *HI* (06/25/15 3:15 PM) Blood Pressure 156/86 mmHg [90-140/60-90 mmHg] *HI* (06/25/15 8:10 PM) Mean Arterial 104 mmHg Pressure, Cuff (06/25/15 6:16 PM) SpO2 98 % (06/25/15 8:10 PM) Problem List Condition Effective Dates Status [...] oldest [Reference Range]: Screen, Negative Urine NPT (06/25/15 12:59 PM) Blood Glucose, 89 mg/dL Capillary [70-100 (06/25/15 12:50 PM) mg/dL] Immunizations Vaccine Date Refusal Reason tetanus-diphth toxoids [...]
--- OUTSIDE RECORDS SUMMARY | 2016-12-11 18:52 | XMS REPORT | Referral Summary ---
Author Author [facility] Organization [facility] Address Unknown Phone Unavailable Care Team Providers Care Russet Repairer Name Role Phone [facility] Unavailable Encounter [facility] [id number] Date(s): 10/12/15 - 10/12/15 [facility] [address] [place] [address] [phone] Discharge Diagnosis: Constipation Discharge Diagnosis: Urinary tract infection Discharge Disposition: 01-Home or Self Care Attending Physician: Rishi Davila MD Admitting Physician: Rishi Davila MD Vital Signs Most recent to 1 oldest [Reference Range]: Temperature Oral 36.4 degC [35.8-37.3 degC] (10/12/15 8:14 PM) Peripheral Pulse 86 bpm Rate [60-100 bpm] (10/12/15 9:44 PM) Respiratory Rate 16 br/min [14-20 br/min] (10/12/15 9:44 PM) Blood Pressure 118/80 mmHg [90-140/60-90 mmHg] (10/12/15 9:44 PM) SpO2 98 % (10/12/15 9:44 PM) Problem List Condition Effective Dates Status [...] Most recent to 1 oldest [Reference Range]: U Beta hCG Ql Neg (10/12/15 8:37 PM) Urinalysis Most recent to 1 oldest [Reference Range]: UA Color Yellow (10/12/15 8:34 PM) UA Appear Sl Cloudy (10/12/15 8:34 PM) UA pH [5.0-8.0] 7.0 (10/12/15 8:34 PM) UA Leuk Est Pos 1+ [Negative] *ABN* (10/12/15 8:34 PM) UA Nitrite Negative [Negative] (10/12/15 8:34 PM) UA Protein Negative [Negative] (10/12/15 8:34 PM) UA Glucose Negative [Negative] (10/12/15 8:34 PM) UA Ketones Negative [Negative] (10/12/15 8:34 PM) UA Urobilinogen 2.0 mg/dL [<1.0 mg/dL] *ABN* (10/12/15 8:34 PM) UA Bili [Negative] Negative (10/12/15 8:34 PM) UA Blood [Negative] Negative (10/12/15 8:34 PM) UA Spec Grav 1.025 [1.003-1.030] (10/12/15 8:34 PM) Type Clean Catch (10/12/15 8:34 PM) UA WBC [0-4] 2-5 (10/12/15 8:34 PM) UA RBC [0-2] 0-2 (10/12/15 8:34 PM) Epithelial Cells 2-5 (10/12/15 8:34 PM) UA Bacteria Occasional *ABN* (10/12/15 8:34 PM) Crystals Amorphous (10/12/15 8:34 PM) UA Hyal Cast [0-3] 1-3 (10/12/15 8:34 PM) UA Mucous Present (10/12/15 8:34 PM) Immunizations Vaccine Date Refusal Reason tetanus-diphth [...]
--- OUTSIDE RECORDS SUMMARY | 2016-12-11 18:52 | XMS REPORT | Referral Summary ---
Author Author [facility] Organization [facility] Address Unknown Phone Unavailable Care Team Providers Care Monologist Name Role Phone [facility] Unavailable Encounter [facility] [id number] Date(s): 09/05/15 - 09/05/15 [facility] [address] [place] [address] [phone] Discharge Diagnosis: Pain, dental Discharge Disposition: 01-Home or Self Care Attending Physician: Rishi Davila MD Admitting Physician: Rishi Davila MD Vital Signs Most recent to 1 oldest [Reference Range]: Temperature Oral 35.8 degC [35.8-37.3 degC] (09/05/15 2:12 AM) Peripheral Pulse 98 bpm Rate [60-100 bpm] (09/05/15 2:12 AM) Respiratory Rate 22 br/min [14-20 br/min] *HI* (09/05/15 2:12 AM) Blood Pressure 144/80 mmHg [90-140/60-90 mmHg] *HI* (09/05/15 2:12 AM) SpO2 97 % (09/05/15 2:12 AM) Problem List Condition Effective Dates Status [...] 0 Refill(s) Start Date: 09/05/15 Status: Ordered [place] 5 mg-325 mg oral tablet 1 tabs, [...]
--- OUTSIDE RECORDS SUMMARY | 2016-12-11 18:52 | XMS REPORT | Referral Summary ---
Author Author [facility] Organization [facility] Address Unknown Phone Unavailable Care Team Providers Care Supervisor Capacitor Processing Name Role Phone [facility] Primary [facility] Phys[facility] Unavailable Encounter [facility] [id number] Date(s): 03/17/15 - 03/18/15 [facility] [address] [place] [address] [phone] Final: SCABIES Final: CONTACT DERMATITIS AND OTHER ECZEMA, UNSPECIFIED CAUSE Final: TOBACCO USE DISORDER Discharge Diagnosis: Scabies Discharge Diagnosis: Contact dermatitis Discharge Disposition: 01-Home or Self Care Attending Physician: Gilberto Xiong MD Admitting Physician: Gilberto Xiong MD Vital Signs Most recent to 1 oldest [Reference Range]: Temperature Oral 36.4 degC [35.8-37.3 degC] (03/18/15 12:16 AM) Peripheral Pulse 98 bpm Rate [60-100 bpm] (03/18/15 3:11 AM) Respiratory Rate 16 br/min [14-20 br/min] (03/18/15 3:11 AM) Blood Pressure 148/67 mmHg [90-140/60-90 mmHg] *HI* (03/18/15 3:11 AM) SpO2 98 % (03/18/15 3:11 AM) Problem List Condition Effective Dates Status [...] oldest [Reference Range]: Screen, Negative Urine NPT (03/18/15 2:28 AM) Immunizations Vaccine Date Refusal Reason tetanus-diphth [...]
--- OUTSIDE RECORDS SUMMARY | 2016-12-11 18:52 | XMS REPORT | Referral Summary ---
Author Author [facility] Organization [facility] Address Unknown Phone Unavailable Care Team Providers Care Armored Machine Operator Name Role Phone [facility] Unavailable Encounter [facility] [id number] Date(s): 06/25/15 - 06/25/15 [facility] [address] [place] [address] Final: TOBACCO USE DISORDER Final: MORBID OBESITY Final: Body Mass Index 50.0-59.9, Adult Discharge Diagnosis: S/p laparoscopic cholecystectomy Discharge Diagnosis: Chronic cholecystitis Final: CHRONIC CHOLECYSTITIS Final: Bipolar disorder, unspecified Discharge Disposition: 01-Home or Self Care Attending Physician: rCisti Lewis MD Admitting Physician: Cristi Lewis MD [...]
--- OUTSIDE RECORDS SUMMARY | 2016-12-11 18:53 | XMS REPORT | Referral Summary ---
Author Author [facility] Organization [facility] Address Unknown Phone Unavailable Care Team Providers Care Certified Medical Dosimetrist Name Role Phone [facility] Physician Unavailable Encounter [facility] [id number] Date(s): 04/01/15 - 04/02/15 [facility] [address] [place] [address] [phone] Discharge Diagnosis: Nausea Final: URINARY TRACT INFECTION, SITE NOT SPECIFIED Final: NAUSEA ALONE Final: TOBACCO USE DISORDER Discharge Diagnosis: Urinary tract infection Discharge Diagnosis: Urinary tract infection Discharge Diagnosis: Nausea Discharge Diagnosis: Nausea Discharge Diagnosis: Urinary tract infection Discharge Disposition: 01-Home or Self Care Attending Physician: Maxx Guallpa DO Admitting Physician: Maxx Guallpa DO Vital Signs Most recent to 1 oldest [Reference Range]: Temperature Oral 36.6 degC [35.8-37.3 degC] (04/01/15 8:15 PM) Peripheral Pulse 101 bpm Rate [60-100 bpm] *HI* (04/01/15 10:00 PM) Heart Rate Monitored 80 bpm [60-100 bpm] (04/01/15 11:30 PM) Respiratory Rate 20 br/min [14-20 br/min] (04/01/15 10:00 PM) Blood Pressure 104/71 mmHg [90-140/60-90 mmHg] (04/01/15 11:30 PM) Mean Arterial 86 mmHg Pressure, Cuff (04/01/15 11:30 PM) SpO2 96 % (04/01/15 11:30 PM) Problem List Condition Effective Dates Status [...] to 1 oldest [Reference Range]: WBC [4.8-10.8 11.6 10*3/uL 10*3/uL] *HI* (04/01/15 8:41 PM) RBC [4.00-5.20 4.67 10*6/uL 10*6/uL] (04/01/15 8:41 PM) Hgb [12.0-16.0 12.7 gm/dL gm/dL] (04/01/15 8:41 PM) Hct [37.0-47.0 %] 39.7 % (04/01/15 8:41 PM) MCV [82.0-99.0 fL] 85.0 fL (04/01/15 8:41 PM) MCH [27.0-32.0 pg] 27.2 pg (04/01/15 8:41 PM) MCHC [32.0-36.0 32.0 gm/dL gm/dL] (04/01/15 8:41 PM) RDW [11.5-14.5 %] 15.2 % *HI* (04/01/15 8:41 PM) Platelet [150-400 309 10*3/uL 10*3/uL] (04/01/15 8:41 PM) MPV [9.4-12.4 fL] 10.8 fL (04/01/15 8:41 PM) Immature 0.3 % Granulocytes (04/01/15 8:41 PM) [0.0-1.0 %] Neutrophils [51-75 65 % %] (04/01/15 8:41 PM) Lymphocytes [20-46 26 % %] (04/01/15 8:41 PM) Monocytes [4-11 %] 6 % (04/01/15 8:41 PM) Eosinophils [0-4 %] 2 % (04/01/15 8:41 PM) Basophils [0-2 %] 1 % (04/01/15 8:41 PM) Neutro Absolute 7.56 10*3 [1.90-7.00 10*3] *HI* (04/01/15 8:41 PM) Lymph Absolute 2.96 10*3 [0.80-3.30 10*3] (04/01/15 8:41 PM) [place] Absolute 0.69 10*3 [0.30-1.00 10*3] (04/01/15 8:41 PM) Eos Absolute 0.28 10*3 [0.00-0.50 10*3] (04/01/15 8:41 PM) Baso Absolute 0.06 10*3 [0.00-0.20 10*3] (04/01/15 8:41 PM) Nucleated RBC 0.0 /100 WBC Automated [0 /100 (04/01/15 8:41 PM) WBC] Chemistry Most recent to 1 oldest [Reference Range]: Sodium Lvl [136-144 139 mEq/L mEq/L] (04/01/15 8:41 PM) Potassium Lvl 3.9 mEq/L [3.6-5.1 mEq/L] (04/01/15 8:41 PM) Chloride [99-109 105 mEq/L mEq/L] (04/01/15 8:41 PM) CO2 [22-32 mEq/L] 26 mEq/L (04/01/15 8:41 PM) AGAP [3-20] 8 (04/01/15 8:41 PM) BUN [4-20 mg/dL] 8 mg/dL (04/01/15 8:41 PM) Glucose Lvl [70-100 106 mg/dL mg/dL] *HI* (04/01/15 8:41 PM) Creatinine Lvl 0.78 mg/dL [0.44-1.03 mg/dL] (04/01/15 8:41 PM) eGFR [>60] >60 1 (04/01/15 8:41 PM) Calcium Lvl 8.9 mg/dL [8.6-10.0 mg/dL] (04/01/15 8:41 PM) Albumin Lvl [3.5-4.8 3.5 gm/dL gm/dL] (04/01/15 8:41 PM) Total Protein 6.9 gm/dL [6.1-7.9 gm/dL] (04/01/15 8:41 PM) Globulin [1.9-4.3 3.4 gm/dL gm/dL] (04/01/15 8:41 PM) ALT [14-54 U/L] 22 U/L (04/01/15 8:41 PM) AST [15-41 U/L] 21 U/L (04/01/15 8:41 PM) Alk Phos [26-104 70 U/L U/L] (04/01/15 8:41 PM) Bili Total [0.2-1.2 0.3 mg/dL 2 mg/dL] (04/01/15 8:41 PM) Lipase Lvl [8-48 25 U/L U/L] (04/01/15 8:41 PM) Blood Glucose, 95 mg/dL Capillary [70-100 (04/02/15 2:46 AM) mg/dL] U Beta hCG Ql Negative [Negative] (04/01/15 8:41 PM) 1Result Comment: Multiply eGFR results by 1.21 for race. 2Result Comment: Naproxen, specifically the metabolite O-desmethylnaproxen, may cause spurious elevation in Total Bilirubin levels. Urinalysis Most recent to 1 oldest [Reference Range]: UA Color Dk Yellow (04/01/15 8:41 PM) UA Appear Sl Cloudy (04/01/15 8:41 PM) UA pH [5.0-8.0] 5.0 (04/01/15 8:41 PM) UA Leuk Est Pos 1+ [Negative] *ABN* (04/01/15 8:41 PM) UA Nitrite Negative [Negative] (04/01/15 8:41 PM) UA Protein Negative [Negative] (04/01/15 8:41 PM) UA Glucose Negative [Negative] (04/01/15 8:41 PM) UA Ketones Trace [Negative] *ABN* (04/01/15 8:41 PM) UA Urobilinogen 4.0 mg/dL [<1.0 mg/dL] *ABN* (04/01/15 8:41 PM) UA Bili [Negative] Positive *ABN* (04/01/15 8:41 PM) UA Blood [Negative] Trace *ABN* (04/01/15 8:41 PM) UA Spec Grav 1.029 [1.003-1.030] (04/01/15 8:41 PM) Type Clean Catch (04/01/15 8:41 PM) UA WBC [0-4] 5-10 *ABN* (04/01/15 8:41 PM) UA RBC [0-2] 5-10 *ABN* (04/01/15 8:41 PM) Epithelial Cells 10-20 (04/01/15 8:41 PM) UA Bacteria Numerous *ABN* (04/01/15 8:41 PM) UA Hyal Cast [0-3] 1-3 (04/01/15 8:41 PM) UA Mucous Present (04/01/15 8:41 PM) Immunizations Vaccine Date Refusal Reason tetanus-diphth [...]
--- OUTSIDE RECORDS SUMMARY | 2016-12-11 18:53 | XMS REPORT | Referral Summary ---
Author Author [facility] Organization [facility] Address Unknown Phone Unavailable Care Team Providers Care Smoking Pipe Liner Name Role Phone Annita [facility] Primary Care Physician Unavailable Encounter [facility] [id number] Date(s): 10/04/16 - 10/04/16 [facility] [address] [place], [place] [address] Discharge Diagnosis: Acute UTI Discharge Diagnosis: Discharge Disposition: 03-Care Home Facility Attending Physician: Kieran Mace DO Admitting Physician: Kieran Mace DO Vital Signs Most recent to 1 oldest [Reference Range]: Temperature Oral 36.5 degC [35.8-37.3 degC] (10/04/16 12:26 PM) Peripheral Pulse 70 bpm Rate [60-100 bpm] (10/04/16 1:45 PM) Respiratory Rate 16 br/min [14-20 br/min] (10/04/16 1:45 PM) Blood Pressure 133/85 mmHg [90-140/60-90 mmHg] (10/04/16 1:45 PM) SpO2 98 % (10/04/16 1:45 PM) Problem List Condition Effective Dates Status [...] Active 1gets muscle spasm and cold Medications cephalexin 500 mg oral tablet 500 mg 1 tabs, Oral, TID, X 7 days, # 21 tabs, 0 Refill(s) Start Date: 10/04/16 Stop Date: 10/11/16 Status: Ordered metoclopramide 10 mg oral tablet See Instructions, Nausea or Vomiting, 1 tabs Oral q6-8hrs prn nausea/vomiting, # 12 tabs, 0 Refill(s) Start Date: 10/04/16 Stop Date: 10/04/17 Status: Ordered 1 0 Refill(s) Start Date: 10/04/16 Status: Ordered Results Chemistry Most recent to 1 oldest [Reference Range]: Sodium Venous 136 mEq/L [136-144 mEq/L] (10/04/16 1:26 PM) Potassium Venous 4.1 mEq/L 1 [3.6-5.1 mEq/L] (10/04/16 1:26 PM) Calcium Ionized 1.04 mmol/L Venous [1.19-1.41 *LOW* mmol/L] (10/04/16 1:26 PM) Total CO2 Venous 21 mEq/L [25-29 mEq/L] *LOW* (10/04/16 1:26 PM) HGB Venous NPT 12.6 gm/dL [12.0-16.0 gm/dL] (10/04/16 1:26 PM) HCT Venous 37.0 % [37.0-47.0 %] (10/04/16 1:26 PM) Glucose Venous 95 mg/dL [70-100 mg/dL] (10/04/16 1:26 PM) BUN Venous [4-20] 8 (10/04/16 1:26 PM) Creatinine Venous 0.4 mg/dL [0.4-1.0 mg/dL] (10/04/16 1:26 PM) Venous CL [99-109 104 mEq/L mEq/L] (10/04/16 1:26 PM) Anion Gap, Christiano 11 [3-20] (10/04/16 1:26 PM) Screen, Positive Urine NPT *ABN* (10/04/16 1:24 PM) 1Result Comment: This test was performed on a whole blood specimen. The presence or absence of hemolysis cannot be assessed. Hemolysis can falsely elevate potassium levels. Normals are for venous specimens only. Urinalysis Most recent to 1 oldest [Reference Range]: UA Color Shanel *ABN* (10/04/16 1:21 PM) UA Appear Cloudy *ABN* (10/04/16 1:21 PM) UA pH [5.0-8.0] 5.0 (10/04/16 1:21 PM) UA Leuk Est Pos 3+ [Negative] *ABN* (10/04/16 1:21 PM) UA Nitrite Positive [Negative] *ABN* (10/04/16 1:21 PM) UA Protein Pos 1+ [Negative] *ABN* (10/04/16 1:21 PM) UA Glucose Negative [Negative] (10/04/16 1:21 PM) UA Ketones Negative [Negative] (10/04/16 1:21 PM) UA Urobilinogen Negative [<1.0] (10/04/16 1:21 PM) UA Bili [Negative] Negative (10/04/16 1:21 PM) UA Blood [Negative] Pos 1+ *ABN* (10/04/16 1:21 PM) UA Spec Grav 1.030 [1.003-1.030] (10/04/16 1:21 PM) Type Clean Catch (10/04/16 1:21 PM) UA WBC [0-4] 20-50 *ABN* (10/04/16 1:21 PM) UA RBC [0-2] 5-10 *ABN* (10/04/16 1:21 PM) Epithelial Cells 20-50 (10/04/16 1:21 PM) UA Bacteria Numerous *ABN* (10/04/16 1:21 PM) UA Mucous Present (10/04/16 1:21 PM) Immunizations Given and Recorded Vaccine Date Status Refusal Reason tetanus-diphth toxoids (Td) adult/adol 08/23/03 Given Procedures Procedure Date Related Diagnosis Body Site [...]
--- OUTSIDE RECORDS SUMMARY | 2016-12-11 18:53 | XMS REPORT | Referral Summary ---
Author Author [facility] Organization [facility] Address Unknown Phone Unavailable Care Team Providers Care Sales Porter Name Role Phone [facility] Primary [facility] Physician Unavailable Encounter [facility] [id number] Date(s): 04/02/16 - 04/02/16 [facility] [address] [place] [address] [phone] Discharge Diagnosis: Diarrhea Discharge Diagnosis: Nausea Discharge Disposition: 01-Home or Self Care Attending Physician: Viet Betts DO Admitting Physician: Viet Betts DO Vital Signs Most recent to 1 oldest [Reference Range]: Temperature Oral 37.1 degC [35.8-37.3 degC] (04/02/16 12:23 PM) Peripheral Pulse 88 bpm Rate [60-100 bpm] (04/02/16 12:29 PM) Respiratory Rate 20 br/min [14-20 br/min] (04/02/16 12:23 PM) Systolic Blood 119 mmHg Pressure [90-140 (04/02/16 12:29 PM) mmHg] Diastolic Blood 82 mmHg Pressure [60-90 (04/02/16 12:29 PM) mmHg] SpO2 100 % (04/02/16 12:29 PM) Problem List Condition Effective Dates Status [...] Date: 01/08/16 Stop Date: 01/07/17 Status: Ordered Zofran ODT 4 mg oral tablet, disintegrating 4 mg 1 tabs, Oral, q8hr, as needed for nausea/vomiting, X 4 days, # 10 tabs, 0 Refill(s) Start Date: 04/02/16 Stop Date: 04/06/16 Status: Ordered Results Hematology Most recent to 1 oldest [Reference Range]: WBC [4.8-10.8 4.2 10*3/uL 10*3/uL] *LOW* (04/02/16 1:01 PM) RBC [4.00-5.20] 4.81 (04/02/16 1:01 PM) Hgb [12.0-16.0 12.8 gm/dL gm/dL] (04/02/16 1:01 PM) Hct [37.0-47.0 %] 40.4 % (04/02/16 1:01 PM) MCV [82.0-99.0 fL] 84.0 fL (04/02/16 1:01 PM) MCH [27.0-32.0 pg] 26.6 pg *LOW* (04/02/16 1:01 PM) MCHC [32.0-36.0 31.7 gm/dL gm/dL] *LOW* (04/02/16 1:01 PM) RDW [11.5-14.5 %] 15.7 % *HI* (04/02/16 1:01 PM) Platelet [150-400 243 10*3/uL 10*3/uL] (04/02/16 1:01 PM) MPV [9.4-12.4 fL] 11.2 fL (04/02/16 1:01 PM) Immature 0.2 % Granulocytes (04/02/16 1:01 PM) [0.0-1.0 %] Neutrophils [51-75 66 % %] (04/02/16 1:01 PM) Lymphocytes [20-46 25 % %] (04/02/16 1:01 PM) Monocytes [4-11 %] 7 % (04/02/16 1:01 PM) Eosinophils [0-4 %] 2 % (04/02/16 1:01 PM) Basophils [0-2 %] 0 % (04/02/16 1:01 PM) Neutro Absolute 2.77 10*3 [1.90-7.00 10*3] (04/02/16 1:01 PM) Lymph Absolute 1.06 10*3 [0.80-3.30 10*3] (04/02/16 1:01 PM) [place] Absolute 0.31 10*3 [0.30-1.00 10*3] (04/02/16 1:01 PM) Eos Absolute 0.07 10*3 [0.00-0.50 10*3] (04/02/16 1:01 PM) Baso Absolute 0.01 10*3 [0.00-0.20 10*3] (04/02/16 1:01 PM) Nucleated RBC 0.0 /100 WBC Automated [0 /100 (04/02/16 1:01 PM) WBC] Chemistry Most recent to 1 oldest [Reference Range]: Sodium Lvl [136-144 138 mEq/L mEq/L] (04/02/16 1:01 PM) Potassium Lvl 3.9 mEq/L [3.6-5.1 mEq/L] (04/02/16 1:01 PM) Chloride [99-109 105 mEq/L mEq/L] (04/02/16 1:01 PM) CO2 [22-32 mEq/L] 26 mEq/L (04/02/16 1:01 PM) AGAP [3-20] 7 (04/02/16 1:01 PM) BUN [4-20 mg/dL] 9 mg/dL (04/02/16 1:01 PM) Glucose Lvl [70-100 119 mg/dL mg/dL] *HI* (04/02/16 1:01 PM) Creatinine Lvl 0.78 mg/dL [0.44-1.03 mg/dL] (04/02/16 1:01 PM) eGFR [>60] >60 1 (04/02/16 1:01 PM) Calcium Lvl 8.8 mg/dL [8.6-10.0 mg/dL] (04/02/16 1:01 PM) Albumin Lvl [3.5-4.8 3.3 gm/dL gm/dL] *LOW* (04/02/16 1:01 PM) Total Protein 6.8 gm/dL [6.1-7.9 gm/dL] (04/02/16 1:01 PM) Globulin [1.9-4.3 3.5 gm/dL gm/dL] (04/02/16 1:01 PM) ALT [14-54 U/L] 23 U/L (04/02/16 1:01 PM) AST [15-41 U/L] 23 U/L (04/02/16 1:01 PM) Alk Phos [26-104 72 U/L U/L] (04/02/16 1:01 PM) Bili Total [0.2-1.2 0.4 mg/dL 2 mg/dL] (04/02/16 1:01 PM) Lipase Lvl [8-48 33 U/L U/L] (04/02/16 1:01 PM) Screen, Negative Urine NPT (04/02/16 1:31 PM) 1Result Comment: Multiply eGFR results by 1.21 for race. 2Result Comment: Naproxen, specifically the metabolite O-desmethylnaproxen, may cause spurious elevation in Total Bilirubin levels. Urinalysis Most recent to 1 oldest [Reference Range]: UA Color Shanel *ABN* (04/02/16 1:27 PM) UA Appear Sl Cloudy (04/02/16 1:27 PM) UA pH [5.0-8.0] 5.0 (04/02/16 1:27 PM) UA Leuk Est Trace [Negative] *ABN* (04/02/16 1:27 PM) UA Nitrite Negative [Negative] (04/02/16 1:27 PM) UA Protein Pos 1+ [Negative] *ABN* (04/02/16 1:27 PM) UA Glucose Negative [Negative] (04/02/16 1:27 PM) UA Ketones Negative [Negative] (04/02/16 1:27 PM) UA Urobilinogen Negative [<1.0] (04/02/16 1:27 PM) UA Bili [Negative] Negative (04/02/16 1:27 PM) UA Blood [Negative] Negative (04/02/16 1:27 PM) UA Spec Grav 1.030 [1.003-1.030] (04/02/16 1:27 PM) Type Not Specified (04/02/16 1:27 PM) UA WBC [0-4] 5-10 *ABN* (04/02/16 1:27 PM) Epithelial Cells 10-20 (04/02/16 1:27 PM) UA Bacteria Moderate *ABN* (04/02/16 1:27 PM) UA Mucous Present (04/02/16 1:27 PM) Immunizations Vaccine Date Refusal Reason tetanus-diphth [...]
--- OUTSIDE RECORDS SUMMARY | 2016-12-11 18:53 | XMS REPORT | Referral Summary ---
Author Author [facility] Organization [facility] Address Unknown Phone Unavailable Care Team Providers Care Security Advisor Name Role Phone Annita [facility] Primary Care Physician Unavailable Encounter [facility] [id number] Date(s): 06/27/15 - 06/27/15 [facility] [address] [place] [address] Final: OTHER SPECIFIED NONINFLAMMATORY DISORDERS OF VAGINA Discharge Diagnosis: Vaginal bleeding Discharge Disposition: 01-Home [...] 1.81 10*3 [0.80-3.30 10*3] (06/27/15 1:44 PM) [place] Absolute 0.44 10*3 [0.30-1.00 10*3] (06/27/15 1:44 [...]
--- OUTSIDE RECORDS SUMMARY | 2016-12-11 18:53 | XMS REPORT | Referral Summary ---
Author Author [facility] Organization [facility] Address Unknown Phone Unavailable Care Team Providers Care Bowling Floor Manager Name Role Phone No PCP, Pt States Primary Care Physician [phone] Encounter Date(s): 11/03/16 - 11/03/16 [facility] [address] [place], [place] [address] Discharge Disposition: 01-Home or Self Care Attending Physician: Maria Esther Ash DO Admitting Physician: Maria Esther Ash DO Vital Signs No data available for this section Problem List Condition Effective Dates Status Health [...] Active 1gets muscle spasm and cold Medications metoclopramide 10 mg oral tablet See Instructions, Nausea or Vomiting, 1 tabs Oral q6-8hrs prn nausea/vomiting, # 12 tabs, 0 Refill(s) Start Date: 10/04/16 Stop Date: 10/04/17 Status: Ordered 1 0 Refill(s) Start Date: 10/04/16 Status: Ordered Results No data available for this section Immunizations Given and Recorded Vaccine Date Status [...]
--- OUTSIDE RECORDS SUMMARY | 2016-12-11 18:53 | XMS REPORT | Referral Summary ---
Author Author [facility] Organization [facility] Address Unknown Phone Unavailable Care Team Providers Care Port Captain Name Role Phone [facility] Primary [facility] Phys[facility] Unavailable Encounter [facility] [id number] Date(s): 01/07/16 - 01/08/16 [facility] [address] [place] [address] Discharge Diagnosis: Hoarse Discharge Diagnosis: Pharyngitis Discharge Diagnosis: Smoker Discharge Diagnosis: Cough Discharge Diagnosis: Viral URI Discharge Disposition: 01-Home or Self Care Attending Physician: Rishi Davila MD Admitting Physician: Rishi Davila MD Vital Signs Most recent to 1 oldest [Reference Range]: Temperature Oral 36.0 degC [35.8-37.3 degC] (01/08/16 12:33 AM) Peripheral Pulse 89 bpm Rate [60-100 bpm] (01/08/16 12:58 AM) Respiratory Rate 32 br/min [14-20 br/min] *HI* (01/08/16 12:58 AM) Blood Pressure 144/90 mmHg [90-140/60-90 mmHg] *HI* (01/08/16 12:58 AM) SpO2 99 % (01/08/16 12:58 AM) Problem List Condition Effective Dates Status [...]
[2016-12-11] MEDS ORDERED: PREN1TAB73 PO (19:03)
--- NOTE | 2016-12-11 19:09 | ERPDOC ---
Departure Disposition Decision Date: Dec 11, 2016 Disposition Decision Time: 21:10 (MICHAEL BRADY APRN) Disposition: 01 DISCHARGED HOME, SELF-CARE Impression Impression (MICHAEL BRADY APRN) Impression: Primary Impression: Gastroenteritis Additional Impression: Headache Headache type: other headache syndrome Qualified Codes: G44.89 - Other headache syndrome Severity: Moderate (MICHAEL BRADY APRN) Condition: Improved Seen By: Mid-level only (MICHAEL BRADY APRN) Patient Instructions: Gastroenteritis (ED) Problems/Meds/Labs Reviewed?: Yes Medications reviewed and manag: Yes (MICHAEL BRADY APRN) Additional Instructions: You have gastroenteritis. You may take zofran 4mg, dissolve 1 tab on tongue every 6 hours as needed for nausea/vomiting. Stay hydrated drink 8-12 glasses of water daily. You may take 50 mg of benadryl every 4-6 hours for headache and to help sleep. You may take OTC tylenol for pain. Follow with Dr. Ash for re-evaluation early next week, sooner if worsting symptoms. Follow up care ordered?: Yes Mental Status: Alert, Oriented (MICHAEL BRADY APRN) Scripts Ondansetron (Zofran Odt) 4 Mg Tab.rapdis 4 MG PO Q6HR Y for NAUSEA &/OR VOMITING, #20 TAB Oral disintegrating tablet Prov: MICHAEL BRADY APRN 12/11/16 HPI - Abdominal Pain General Chief Complaint: Nausea,Vomiting,Diarrhea Stated Complaint: 18 WEEKS /VOMITING/HEADACHE Time Seen by Provider: 19:07 Source: patient (MICHAEL BRADY APRN) Time Seen by Provider: 19:06 (TAMELA MORSE DO) HPI - Abdominal Pain Initial Comments 36 YO F presents to ED with report headache, nausea, vomiting and upper abdominal cramping. Patient reports NAILS started 2 days ago similar to her "usual headaches". Headache is right frontal. Nausea, vomiting and upper abdominal cramping started today. States she lives with "people who have a stomach bug", they have nausea and vomiting. Patient is approx. 18 weeks . EDC 8-- 17. VII, Para III, 3 spontaneous , 1 tubal all before 10 weeks. Patient denies fever, SOB, cough, diarrhea, vaginal bleeding or dysuria. Has taken tylenol and Tums without relief. Patient is seen [facility] in [place]. Has know IUP. T 156. Pain Scale: Now: 8/10 Quality: cramping Location: epigastric Modifying Factors: WORSE WITH: palpation Associated Symptoms: nausea/vomiting, DENIES: back pain, chest pain, diaphoresis, fatigue, fever/chills, headache, heartburn, rash, shortness of breath, swelling/mass in abdomen, syncope, weakness (MICHAEL BRADY [employer]LECT[employer]IC[employer]) Allergies: Coded Allergies: promethazine (Verified Allergy, Mild, SPASM, 12/11/16) MUSCLE SPASMS AND CHILLS Past History Past Medical History Metabolic: DENIES: diabetes Cardiac: DENIES: angina Respiratory: asthma GI: gallbladder disease Female: UTI, DENIES: renal insufficiency Neurological: seizures (as a child) Musculoskeletal: DENIES: rheumatoid arthritis Integumentary: eczema Psychological: bipolar (MICHAEL BRADY A [employer]) Surgical History General: gallbladder (MICHAEL BRADY [employer]) Family History Family PMH: FOUND: other (noncontributory) (MICHAEL BRADY [employer]) Social History Smoking Status: Current every day smoker Sexuality: male partner (JEYSON BRADYS A [employer]) Review of Systems Constitutional Constitutional: DENIES: dizziness, fever, weakness (JEYSON BRADYS A [employer]) Eyes General: DENIES: erythema, exudate Lids/Accessories: DENIES: erythema, swelling (JEYSON BRADYS A [employer]) ENMT Ears: DENIES: pain Hearing: DENIES: hearing loss Sinuses: DENIES: congestion, rhinorrhea Mouth/Throat: DENIES: sore throat (JEYSON BRADYS A [employer]) Cardiovascular Cardiac: DENIES: chest pain, murmur Rhythm/Rate: DENIES: palpitations (JEYSON BRADYS A [employer]) Pulmonary Respiratory: DENIES: cough, dyspnea (JEYSON BRADYS A [employer]) GI Upper Abdomen: nausea, pain (cramping), see HPI, vomiting Lower Abdomen: DENIES: diarrhea, pain (JEYSON BRADYS A [employer]) General: DENIES: dysuria, pain (JEYSON BRADYS A [employer]) Musculoskeletal General: DENIES: joint pain, pain, tenderness (JEYSON BRADYS A [employer]) Integumentary Skin: DENIES: color change, itching, rash (MICHAEL BRADY [employer]) Neurological General: DENIES: ataxia, change in strength, numbness, paralysis/paresis, weakness (MICHAEL BRADY [employer]) Psychiatric Psychiatric: DENIES: anxiety, depression, nervousness (MICHAEL BRADY [employer]) Physical Exam General General Nourishment: well nourished, well developed, adult, obese General Body Habitus: disheveled (MICHAEL BRADY APRN) Vitals and Pain First Documented Vital Signs Date Time Temp Pulse Resp B/P Pulse Ox O2 Delivery O2 Flow Rate FiO2 12/11/16 18:50 97.5 97 18 128/85 96 Room Air ( M DO) Vitals and Pain Weight: Kilograms: 146.800 Height (feet): 8 Height (inches): 7.00 Triage Pain Scale: (MICHAEL BRADY APRN) Eyes (brief) Eyes Brief: found: EOMI (MICHAEL BRADY APRN) ENMT (brief) ENMT Brief: NOT FOUND: nasal exudate, nasal swelling (MICHAEL BRADY APRN) Neck (brief) Neck: FOUND: trachea midline (MICHAEL BRADY [employer]) Respiratory (brief) Respiratory: FOUND: clear all su, equal bilaterally, symmetrical (MICHAEL BRADY [employer]) Cardiovascular (brief) Cardiac: FOUND: regular rate, regular rhythm (MICHAEL BRADY [employer]) Abdomen Palpation: FOUND: soft, tender (mild TTP in epigastric area), voluntary guarding, NOT FOUND: involuntary guarding, rebound (MICHAEL BRADY [employer]) Differential Diagnoses Considering: Bowel Obstruction, Dehydration, Food Poisoning, Gastroenteritis, Hypokalemia, Influenza, UTI, Viral Syndrome (MICHAEL BRADY [employer]) Progress Results/Orders Orders Procedure Category Date Status Time Cbc W/Auto LAB 12/11/16 Complete Diff-Reflex Manual 19:17 Cmp - Comprehensive LAB 12/11/16 Complete Metabolic 19:17 Lipase LAB 12/11/16 Complete 19:17 Ua, Dip Wreflex LAB 12/11/16 Complete Microsc & Director Electrical Engineering 19:17 Iv Lock (Ed Only) EDM 12/11/16 Transmitted 19:17 Normal Saline (Normal PHA 12/11/16 Complete Saline Iv) 19:17 Metoclopramide PHA 12/11/16 Complete (Reglan Inj) 19:30 Ondansetron Odt PHA 12/11/16 Complete (Prepack) (Zofran Odt 21:30 ( M DO) Lab Results Laboratory Tests Test 12/11/16 20:02 12/11/16 20:12 White Blood Count 13.7T/MM3 Red Blood Count 4.30M/MM3 Hemoglobin 11.8GM/DL Hematocrit 35.9% Mean Corpuscular Volume 83.5UM3 Mean Corpuscular Hemoglobin 27.4UUG Mean Corpuscular Hemoglobin Concent 32.9GM/DL RDW Standard Deviation 50.3FL Platelet Count 317T/MM3 Mean Platelet Volume 10.2UM3 Immature Granulocyte % (Auto) 0.1% Neutrophils (%) (Auto) 80.5% Lymphocytes (%) (Auto) 13.9% Monocytes (%) (Auto) 4.2% Eosinophils (%) (Auto) 1.2% Basophils (%) (Auto) 0.1% Absolute Immature Granulocyte (auto 0.02T/MM3 Absolute Neutrophils (auto) 11.0T/MM3 Absolute Lymphocytes (auto) 1.9T/MM3 Absolute Monocytes (auto) 0.6T/MM3 Absolute Eosinophils (auto) 0.2T/MM3 Absolute Basophils (auto) 0.0T/MM3 Turbidity < 20 Sodium Level 140MEQ/L Potassium Level 3.9MEQ/L Chloride Level 107MEQ/L Carbon Dioxide Level 22MEQ/L Anion Gap 11MEQ/L Blood Urea Nitrogen 8.0MG/DL Creatinine 0.4MG/DL Glomerular Filtration Rate Calc 182 BUN/Creatinine Ratio 20RATIO Glucose Level 100MG/DL Calculated Osmolality 267MOSM/KG Calcium Level 8.8MG/DL Total Bilirubin 0.50MG/DL Icterus Index < 2 Aspartate Amino Transf (AST/SGOT) 24U/L Alanine Aminotransferase (ALT/SGPT) 43U/L Alkaline Phosphatase 64U/L Total Protein 6.7G/DL Albumin 3.4G/DL Globulin 3.3G/DL Albumin/Globulin Ratio 1.0RATIO Lipase 54U/L Chemistry Specimen Hemolysis 19 Urine Collection Type Cleancatch-midstream Urine Color Yellow Urine Turbidity Sl cloudy Urine pH 6.0 Urine Specific [place] >=1.030 Urine Protein Negative Urine Glucose (UA) Negative Urine Ketones Trace Urine Blood Trace-lysed Urine Nitrite Negative Urine Bilirubin Negative Urine Urobilinogen 0.2EU/DL Urine Leukocyte Esterase Negative Urinalysis Comment Microscopic not ind. () Medications Current ED Medications Sodium Chloride (Normal Saline IV) 1,000 ml @ 0 mls/hr Q0M ONCE IV Last administered on 12/11/16 20:10; Start 12/11/16 at 19:17; Stop 12/11/16 at 19:30 ; Status DC Metoclopramide HCl (REGLAN Inj) 10 mg O ONCE IV Last administered on 20:10; Start 12/11/16 at 19:30; Stop 12/11/16 at 19:31; Status DC Ondansetron HCl (ZOFRAN ODT (PrePack)) 1 pack O ONCE SENT HOME Last administered on 12/11/16 22:16; Start 12/11/16 at 21:30; Stop 12/11/16 at 21:31 ; Status DC () Progress Progress Labs unremarkable. Patient reports improvement of nausea, epigastric pain and NAILS. I discussed conversation I had with Dr. Debbie iXong who is taking call for Dr. Ash. Patient verbalized understanding of treatment plan, follow up with OB and return precautions. (MICHAEL BRADY APRN) Consult/PCP Consult/PCP : Type of discussion: Phone Consult/PCP Discussion Details I discussed patient's HPI, past medical history, vital signs, labs, exam findings, heart tones with Dr. Debbie Xiong taking call for Dr. Verna Henry. Dr. Xiong states patient may go home and follow with Dr. Ash for reevaluation. Patient may be started on Zofran for nausea and vomiting. (MICHAEL BRADY APRN) MICHAEL BRADY APRN Dec 11, 2016 19:09 JANUARY,TAMELA Parnell DO Dec 12, 2016 04:54
--- NOTE | 2016-12-11 19:14 | NUR ---
OB INFO PT REPORTS SEEING DR. ORDONEZ FOR OB CARE. REPORTS DUE DATE MAY 10, 2017 STATES NEXT OB VISIT DECEMBER 22, 2016 T 156
[2016-12-11] MEDS ORDERED: NORMAL SALINE 1,000 ML IV ONE (19:17)
--- OUTSIDE RECORDS SUMMARY | 2016-12-11 19:22 | XMS REPORT | Continuity of Care Document ---
Author Author [facility] Organization [facility] Address Unknown Phone Unavailable Allergies Active Description [...] Status Pt. Type Provider Facility Loc./Unit Complaint [id number] 02/02/2014 22:36:00 2013 23:25:00 DIS Emergency Ghazal BARRAZA, Mahin Nadir [facility] [id number] 01/18/2014 22:33:00 2013 01:55:00 DIS Emergency Moris Hatch MD, Branden Crockett [facility] [id number] 09/15/2013 23:19:00 2012 00:15:00 DIS Emergency Rishi Davila MD [facility] [id number] 07/20/2013 23:36:00 2012 03:15:00 DIS Emergency Marcos Wu MD [facility] [id number] 06/05/2013 23:04:00 2012 03:50:00 DIS Emergency Leodan Ricardo MD [facility] [id number] 04/01/2013 00:18:00 2012 01:15:00 DIS Emergency Rishi Davila MD [facility] [id number] 03/13/2013 14:30:00 2012 16:40:00 DIS Emergency Tone Jain MD [facility] [id number] 12/21/2012 20:46:00 2012 23:38:00 DIS Emergency Javier Chauhan DO [facility] [id number] 11/16/2012 11:29:00 2012 12:42:00 DIS Emergency Hermilo Guthrie MD [facility] [id number] 10/11/2012 22:40:00 2012 00:00:00 DIS Emergency Marcos Wu MD [facility] [id number] 08/16/2012 19:41:00 2011 20:49:00 DIS Emergency Olga BARRAZA, [facility] [id number] 06/09/2012 15:57:00 2011 16:46:00 DIS Emergency Olga BARRAZA, [facility] [id number] 05/02/2012 21:29:00 2011 23:40:00 DIS Emergency Olga BARRAZA [facility]
[2016-12-11] MEDS ORDERED: METOCLOPRAMIDE 10mg/2ml INJECTION IV ONE (19:30)
[2016-12-11 20:07] LABS: BASOPHILS % (AUTO) 0.1 % (0-2); EOSINOPHILS # (AUTO) 0.2 T/MM3 (0-0.5); EOSINOPHILS % (AUTO) 1.2 % (0-4); HCT - HEMATOCRIT 35.9 % (36-46); HGB - HEMOGLOBIN 11.8 GM/DL (12-16); IMMATURE GRANULOCYTE # (AUTO) 0.02 T/MM3 (0.00-0.03); IMMATURE GRANULOCYTE % (AUTO) 0.1 % (0.0-0.5); LYMPHOCYTES # (AUTO) 1.9 T/MM3 (1-4.8); LYMPHOCYTES % (AUTO) 13.9 % (23-45); MEAN CORPUSCULAR HGB 27.4 UUG (26-34); MEAN CORPUSCULAR HGB CONC(MCHC 32.9 GM/DL (31-37); MEAN CORPUSCULAR VOLUME 83.5 UM3 (80-100); MEAN PLATELET VOLUME 10.2 UM3 (9.4-12.4); MONOCYTES # (AUTO) 0.6 T/MM3 (0-0.8); MONOCYTES % (AUTO) 4.2 % (0-9.0); NEUTROPHILS % (AUTO) 80.5 % (33-66); WBC - WHITE BLOOD COUNT 13.7 T/MM3 (4.5-11.0)
[2016-12-11 20:30] LABS: BLOOD, URINE TRACE-LYSED (NEGATIVE); COLOR,URINE YELLOW (YELLOW); LEUKOCYTE ESTERASE ,URINE NEGATIVE (NEGATIVE); NITRITE,URINE NEGATIVE (NEGATIVE); UROBILINOGEN,URINE 0.2 EU/DL (NORMAL)
[2016-12-11 20:33] LABS: ALBUMIN 3.4 G/DL (3.5-5.0); ALKALINE PHOSPHATASE 64 U/L (38-126); ANION GAP 11 MEQ/L (5-15); BUN/CREATININE RATIO 20 RATIO (6-26); CALCIUM 8.8 MG/DL (8.4-10.2); CHLORIDE 107 MEQ/L (98-107); CO2 - CARBON DIOXIDE 22 MEQ/L (22-30); CREATININE 0.4 MG/DL (0.7-1.2); GLOMERULAR FILTRATION RATE 182; GLUCOSE 100 MG/DL (65-110); POTASSIUM 3.9 MEQ/L (3.6-5); SODIUM 140 MEQ/L (134-144); TOTAL PROTEIN 6.7 G/DL (6.3-8.2)
[2016-12-11 20:34] LABS: ALT (SGPT) 43 U/L (9-52); AST (SGOT) 24 U/L (14-36); LIPASE 54 U/L (23-300)
[2016-12-11] MEDS ORDERED: ONDA4TAB7 PO (21:13)
[2016-12-11] MEDS ORDERED: ONDANSETRON ODT 4mg #3 (PrePack) SENT HOME ONE (21:30)
[2016-12-11 22:21] VITALS: BP 133/78; PULSE 100; RESP 18; TEMP 97.5; O2SAT 96
--- NOTE | 2016-12-11 22:21 | NUR ---
DEPART PT GIVEN DI FOR GASTROENTERITIS, ZOFRAN, F/U. RX/PREPAK PROVIDED FOR ZOFRAN. PT VERBALIZES UNDERSTANDING OF DI. QUESTIONS ASKED/ ANSWERED - DENIES FURTHER QUESTIONS/NEEDS AT THIS TIME. PT STATES IMPROVEMENT IN NAUSEA. NO LONGER ACTIVELY VOMITING. IV SITE REMOVED, PERSONAL BELONGINGS GATHERED. PT AMUBLATED/ESCORTED TO ED EXIT - GAIT STABLE, NO SIGN OF DISTRESS.
== END 2016-12-11 22:21 | disposition home or self-care (01) ==
LOC: ED 18:46
DX: O26.892 Other specified pregnancy related conditions, second trimester (principal); G44.89 Other headache syndrome; K52.9 Noninfective gastroenteritis and colitis, unspecified; Z3A.18 18 weeks gestation of pregnancy
CPT/HCPCS: 80053; 81003; 83690; 85025; 96361; 96374; 99284; J2765; J7030